=== PATIENT | female | born 1970 | race Two or more races ===

== ENCOUNTER → 2019-04-09 | Outpatient (CLI) | payer BC ==
[~2019-04-09] MED LIST: FERR28TA2 PO; IBU800 PO
--- NOTE | 2019-04-14 13:50 | RADIOLOGY IMAGING REPORT ---
FACILITY: [facility] - [place] PATIENT NAME: ISABELLA HARRELL : [id number] MR: [id number] V: [id number] EXAM DATE: ORDERING PHYSICIAN: BEBETO VAZQUEZ TECHNOLOGIST: María Miner PROCEDURE: BILATERAL DIGITAL SCREENING MAMMOGRAM WITH CAD ASSISTED INTERPRETATION & 3D TOMOSYNTHESIS. REASON FOR STUDY: Screening. COMPARISON: 01/29/2016. VIEWS OBTAINED: 2D & 3D full field CC & MLO projections. BREAST DENSITY: Demonstrates scattered fibroglandular tissue elements. MAMMOGRAM FINDINGS: In the Right breast there is a 6mm mass that is round in shape, and is located at approximately the 2 o'clock position anterior 1/3 for depth. The Left breast is normal. IMPRESSION: BIRADS 0: Incomplete. Indeterminate mass Right breast 2 o'clock position anterior 1/3 for depth. DIAGNOSTIC CATEGORY 0--INCOMPLETE: NEED ADDITIONAL IMAGING EVALUATION. RECOMMENDATIONS: SPOT COMPRESSION CC, SPOT COMPRESSION MLO, AND POSSIBLE RIGHT BREAST ULTRASOUND FOR FURTHER EVALUATION. Dictated by: Tab Simpson M.D. on 04/14/2019 at 9:15 Transcribed by: MICHELLE on 04/14/2019 at 9:38 Approved by: Tab Simpson M.D. on 04/14/2019 at 13:46 [facility]
== END ==
LOC: MAMO 03:32
PROVIDERS: ATTEND Physician Assistant
DX: Z12.31 Encounter for screening mammogram for malignant neoplasm of breast (principal); N63.12 Unspecified lump in the right breast, upper inner quadrant
CPT/HCPCS: 77063; 77067

== ENCOUNTER → 2019-05-04 | Outpatient (CLI) | payer BC ==
--- NOTE | 2019-05-05 11:42 | RADIOLOGY IMAGING REPORT ---
FACILITY: [facility] PATIENT NAME: ISABELLA HARRELL : [id number] MR: [id number] V: [id number] EXAM DATE: ORDERING PHYSICIAN: BEBETO VAZQUEZ TECHNOLOGIST: María Miner PROCEDURE:RIGHT DIGITAL MAMMOGRAM DIAGNOSTIC WITH CAD ASSISTED INTERPRETATION & 3D TOMOSYNTHESIS REASON FOR STUDY: Further evaluation. COMPARISON STUDIES: 04/09/19, 01/29/16. MAMMOGRAM VIEWS OBTAINED: 2D & 3D Spot compression views in the Right CC & MLO projection. MAMMOGRAM FINDINGS: The additional mammographic views demonstrate a circumscribed nodular density in the 3-4 o'clock position of the Right breast. ULTRASOUND AREA SCANNED: The 2-4 o'clock position of the Right breast. ULTRASOUND FINDINGS: In the 3 o'clock position of the Right breast 1cm from the nipple there is an 8 x 6 x 3mm cyst, this likely accounts the for patient's recent mammographic findings. DIAGNOSTIC CATEGORY 2--BENIGN FINDING. RECOMMENDATIONS: ROUTINE MAMMOGRAM AND CLINICAL EVALUATION. IMPRESSION: BIRADS 2: Benign finding. There is a small cyst in the 3 o'clock position of the Right breast likely accounting for the recent mammographic findings. Dictated by: Mary Del Toro M.D. on 05/04/2019 at 16:29 Transcribed by: MICHELLE on 05/05/2019 at 11:32 Approved by: Mary Del Toro M.D. on 05/05/2019 at 11:37 [facility]
--- NOTE | 2019-05-05 11:42 | RADIOLOGY IMAGING REPORT ---
FACILITY: PATIENT NAME: ISABELLA HARRELL : [id number] MR: [id number] V: [id number] EXAM DATE: ORDERING PHYSICIAN: BEBETO VAZQUEZ TECHNOLOGIST: Yodit Mandujano RT(R)(CT) Caution: Report not yet finalized and possibly incomplete! PROCEDURE:RIGHT DIGITAL MAMMOGRAM DIAGNOSTIC WITH CAD ASSISTED INTERPRETATION & 3D TOMOSYNTHESIS REASON FOR STUDY: Further evaluation. COMPARISON STUDIES: 04/09/19, 01/29/16. MAMMOGRAM VIEWS OBTAINED: 2D & 3D Spot compression views in the Right CC & MLO projection. MAMMOGRAM FINDINGS: The additional mammographic views demonstrate a circumscribed nodular density in the 3-4 o'clock position of the Right breast. ULTRASOUND AREA SCANNED: The 2-4 o'clock position of the Right breast. ULTRASOUND FINDINGS: In the 3 o'clock position of the Right breast 1cm from the nipple there is an 8 x 6 x 3mm cyst, this likely accounts the for patient's recent mammographic findings. DIAGNOSTIC CATEGORY 2--BENIGN FINDING. RECOMMENDATIONS: ROUTINE MAMMOGRAM AND CLINICAL EVALUATION. IMPRESSION: BIRADS 2: Benign finding. There is a small cyst in the 3 o'clock position of the Right breast likely accounting for the recent mammographic findings. Dictated by: Mary Del Toro M.D. on 05/04/2019 at 16:29 Transcribed by: MICHELLE on 05/05/2019 at 11:33 Approved by: Mary Del Toro M.D. on 05/05/2019 at 11:37 [facility]
== END ==
LOC: MAMO 01:01
PROVIDERS: ATTEND Physician Assistant
DX: N60.01 Solitary cyst of right breast (principal)
CPT/HCPCS: 77061; 77065